=== PATIENT | female | born 1990 | race Caucasian/White ===

== ENCOUNTER 2022-08-04 18:12 | Emergency (ER) | payer OTHER, SELFPAY ==
--- NOTE | ~2022-08-04 | XR_ITS ---
EXAMINATION: XR chest 2V Exam Date/Time: 08/04/2022 18:32 COLLEGE OR UNIVERSITY BUSINESS MANAGER HISTORY: (+)COVID 07/21/22. COUGH/CONGESTION SINCE. Comparison: None available. RESULT: Lines, tubes, and devices: None. Lungs and pleura: Clear. Cardiomediastinal silhouette: Normal. Other: No acute osseous or upper abdominal finding. IMPRESSION: No acute cardiopulmonary process. Reviewed, dictated and finalized at location K. EGE OR UNIVERSITY BUSINESS MANAGER
[2022-08-04 18:18] VITALS: BP 192/115; PULSE 110; RESP 20; TEMP 37; O2SAT 100
--- NOTE | 2022-08-04 19:27 | ED.GENADULT ---
HPI - General Adult General Chief complaint: Upper Respiratory Infection Stated complaint: cold congestion Source: patient Mode of arrival: ambulatory Limitations: no limitations History of Present Illness HPI narrative: Patient presents for evaluation of ?difficulty breathing . She developed some chest congestion, shortness of breath and cough on 07/19/2022. On 07/23/2022 she took a COVID test which was positive. She states this is her 4th time having COVID. She states that her symptoms were initially mild but today she noted significantly worsening symptoms. She has experience wheezing, palpitations, racing heart rate. Denies any fever, chills, nausea, vomiting but does feel diaphoretic. She does not smoke. She is not on exogenous estrogen. No personal or family history of DVT or PE. No leg swelling. She states she has home O2 and checked her oxygen level which was in the high 80's-91%. No additional complaints or concerns. Related Data Home Medications Medication Instructions Recorded Confirmed metformin 500 mg tablet 500 mg PO DAILY 08/04/22 08/04/22 methylphenidate HCl 36 mg 72 mg PO DAILY 08/04/22 08/04/22 tablet,extended release 24 hr spironolactone 50 mg tablet 50 mg PO DAILY 08/04/22 08/04/22 Allergies Allergy/AdvReac Type Severity Reaction Status Date / Time morphine Allergy Hives Verified 08/04/22 18:30 Review of Systems Review of Systems: CONSTITUTIONAL: Reports diaphoresis. Denies fever, chills, or sweats. EYES: Denies visual changes, redness, or discharge. ENT: Denies rhinorrhea, congestion, sore throat, or otalgia. CARDIOVASCULAR: Reports palpitations and racing heart rate. Denies chest pain or edema. RESPIRATORY: Reports cough and shortness of breath. GASTROINTESTINAL: Denies abdominal pain, nausea, vomiting, or diarrhea. GENITOURINARY: Denies dysuria or hematuria. SKIN: Denies rash or itching. MUSCULOSKELETAL: Denies back pain, joint pain, or myalgia. NEUROLOGIC: Denies headache, numbness, dizziness, or weakness. PSYCHIATRIC: Denies anxiety or depression. [facility] Past Medical History Medical History (Updated 08/04/22 @ 19:46 by Jeremiah Toth, HISTOLOGY TECH, [place]) PCOS (polycystic ovarian syndrome) Surgical History Surgical History (Updated 01/02/23 @ 19:30 by Jeremiah Toth, [facility], ) History of oophorectomy Family History Family History Mother Family history non-contributory Social History Social History Smoking status: Never smoker Substance use: never Living arrangements: with family Additional occupation/education comments: RN Gender identity (if verbalized by the patient): Female Sexual Orientation (if Verbalized by the Patient): Straight or Heterosexual Spiritual care concerns: No Exam Narrative: GENERAL: Well-appearing, well-nourished, and in no acute distress. HEAD: Normocephalic, atraumatic. EYES: PERRLA and EOMI. ENT: Nares clear, no rhinorrhea or epistaxis. Mucous membranes moist. Oropharynx without tonsillar hypertrophy exudate or other lesions. Bilateral TMs pearly reeder nonbulging NECK: Supple. No adenopathy or masses. No carotid bruits or JVD CHEST: Diffuse inspiratory and expiratory wheezing and rales noted bilaterally HEART: Rate 120. Normal rhythm.. No murmur heard. Normal peripheral pulses. ABDOMEN: Soft, nontender, nondistended, normal active bowel sounds. EXTREMITIES: Normal range of motion. No edema. SKIN: Warm, dry, no rash. NEURO: No focal deficits. Alert and oriented x3. PSYCH: Normal mood and affect. Course Course Emergency Course: This is a 31-year-old female who presented for evaluation of respiratory symptoms with a recent diagnosis of COVID. Her chest x-ray was negative. However she was tachycardic and hypertensive. Saturations here were normal but she states home O2 sats were in the high 80s to 91%. I c
--- NOTE | 2022-08-04 19:38 | ECG_ITS ---
Measurements Intervals [place] Rate: 101 P: 48 HI: 178 QRS: -20 QRSD: 92 T: 19 QT: 341 QTc: 443 Interpretive Statements SINUS TACHYCARDIA DELAYED PRECORDIAL R/S TRANSITION INFERIOR INFARCT, AGE INDETERMINATE BASELINE ARTIFACT- I, II, III, AVR, AVL, AVF, V5 ABNORMAL ECG NO PREVIOUS ECG AVAILABLE FOR COMPARISON Electronically Signed On 08-05-2022 14:24:51 UNDERWRITING INTERN by Donnell Posadas D.O.
== END 2022-08-04 19:48 | disposition short-term general hospital (02) ==
PROVIDERS: Emergency Provider Nurse Practitioner
DX: R00.0 Tachycardia, unspecified (principal); U07.1 COVID-19; R06.02 Shortness of breath; E28.2 Polycystic ovarian syndrome
CPT/HCPCS: 71046; 93005; 99213; G0463

== ENCOUNTER 2022-08-04 20:26 | Observation (INO) | payer OTHER, SELFPAY ==
--- NOTE | ~2022-08-04 | XR_ITS ---
EXAMINATION: XR chest 1V portable Exam Date/Time: 08/04/2022 20:43 DIRECTOR OF HOUSING HISTORY: cough, SOB, HAD COVID ON Comparison: 08/04/2022 at 6:38 PM. RESULT: Lines, tubes, and devices: None. Lungs and pleura: Low lung volumes with crowding. No focal consolidation, effusion, or pneumothorax. Cardiomediastinal silhouette: Stable. Other: No acute osseous or upper abdominal finding. IMPRESSION: No acute cardiopulmonary process. Reviewed, dictated and finalized at location K. CTOR OF HOUSING
--- NOTE | ~2022-08-04 | CT_ITS ---
Clinical Indication: Dyspnea, abdominal pain CT Scan of the Chest, Abdomen, and Pelvis with Contrast: Technique: Contiguous sections were acquired throughout the chest, abdomen, and pelvis after intraven ous administration of 100 cc of Omnipaque 350. Coronal maximum intensity projection 3-D reconstructi ons were created by the technologist. Dose reduction technique was used on this scan by utilizing au tomated exposure control and iterative reconstruction technique. The dose-length product (DLP) was 24 53.83 mGy-cm. Findings: There is no evidence of any significant mediastinal, hilar or axillary lymphadenopathy. No aortic ane urysm or dissection. No definite large pulmonary embolus, but timing of the contrast bolus is subopti mal to evaluate for pulmonary emboli. There is no evidence of pleural or pericardial effusion. The lungs are clear. No pulmonary nodules or infiltrates are noted. The liver, spleen, pancreas, adrenals and kidneys are within normal limits. Gallbladder not visualize d. No evidence of aortic aneurysm. No lymphadenopathy. There is a large, low, ventral hernia containing multiple small bowel loops, as well as a small anter ior portion of the urinary bladder, and mesenteric fat. No bowel obstruction or bowel wall thickening . Urinary bladder is otherwise unremarkable. Probable small septated or multiple small right ovarian cy sts present. No other adnexal mass seen. No ascites. Impression: Very limited evaluation for pulmonary embolus due to timing of contrast bolus. No definite large cent ral pulmonary embolus. Consider VQ scan as indicated for further evaluation. Large, low, ventral hernia containing multiple small bowel loops, small portion urinary bladder, and mesenteric fat. No bowel obstruction or bowel wall thickening. Reviewed, dictated and finalized at [facility]. D [facility]OWER Impression: Very limited evaluation for pulmonary embolus due to timing of contrast bolus. No definite large central pulmonary embolus. Consider VQ scan as indicated for further evaluation. Large, low, ventral hernia containing multiple small bowel loops, small portion urinary bladder, and mesenteric fat. No bowel obstruction or bowel wall thicke
[2022-08-04 20:27] VITALS: BP 144/109; PULSE 110; RESP 24; TEMP 36.5; O2SAT 99
--- NOTE | 2022-08-04 20:35 | ECG_ITS ---
Rate 95 HI 0 QRSd 93 QT 329 QTc 415 --[place]-- P QRS -27 T 14 SINUS OR ECTOPIC ATRIAL RHYTHM INCOMPLETE RIGHT BUNDLE BRANCH BLOCK POOR R WAVE PROGRESSION, ANTERIOR LEADS BORDERLINE T WAVE ABNORMALITY- ANT/INF LEADS BASELINE ARTIFACT- I, II, III, AVR, AVL, AVF, V1-V6 BORDERLINE ECG Electronically Signed On 08-05-2022 16:17:37 PROCESSOR INSPECTOR by Donnell Posadas D.O. COMPARED TO ECG 08/04/2022 19:37:57 ECTOPIC ATRIAL RHYTHM NOW PRESENT INCOMPLETE RIGHT BUNDLE-BRANCH BLOCK NOW PRESENT MTDD
--- NOTE | 2022-08-04 20:45 | ED.SOB ---
HPI - SOB/Dyspnea General Chief Complaint: Shortness of Breath/Dyspnea Stated Complaint: recent COVID, dyspnea sent from urgent care Time Seen by Provider: 08/04/22 20:36 Source: RN notes reviewed History of Present Illness HPI Narrative: Patient presents emergency department from urgent care for shortness of breath. Patient states she tested positive for COVID on July 21. States that she initially improved but over the past 24 hours she has become more short of breath she states she has been coughing frequently with wheezing throughout the lung rodgers. She states she feels that she cannot take a deep breath and states that she is continuously coughing. She denies any fevers or chills she denies any chest pain denies abdominal pain nausea or vomiting. She gone to urgent care and was then transferred to the ER for further evaluation Related Data Home Medications Medication Instructions Recorded Confirmed metformin 500 mg tablet 500 mg PO DAILY 08/04/22 08/04/22 methylphenidate HCl 36 mg 72 mg PO DAILY 08/04/22 08/04/22 tablet,extended release 24 hr spironolactone 50 mg tablet 50 mg PO DAILY 08/04/22 08/04/22 Allergies Allergy/AdvReac Type Severity Reaction Status Date / Time morphine Allergy Hives Verified 08/04/22 20:31 Review of Systems Review of Systems: Gen.: Denies fevers or chills ENT: Denies congestion Respiratory: See HPI CV: Denies chest pain or palpitations GI: Denies abdominal pain nausea, emesis or diarrhea Musculoskeletal: Denies back pain or muscle pain Neuro: Denies numbness, tingling, weakness or focal weakness Skin: Denies rash Except as documented, all other systems reviewed and negative [facility] Past Medical History Medical History Hidradenitis suppurativa PCOS (polycystic ovarian syndrome) Psoriasis Surgical History Surgical History H/O ventral hernia repair History of oophorectomy Family History Family History Mother Diabetes mellitus Father Hypertension Other Family history non-contributory Social History Social History Smoking status: Never smoker Substance use: never Additional occupation/education comments: RN Gender identity (if verbalized by the patient): Female Sexual Orientation (if Verbalized by the Patient): Straight or Heterosexual Spiritual care concerns: No Exam Narrative: APPEARANCE: Mild respiratory distress, nontoxic, resting in bed EYES: EOMI HEENT: Normocephalic, atraumatic, OMM RESPIRATORY: Mild respiratory distress patient in short phrases and some wheezing throughout the bilateral lung rodgers with decreased breath sounds in the bases CARDIOVASCULAR: Regular rate and rhythm without murmurs rubs or gallops. ABDOMINAL: Soft, nontender, nondistended, no rebound or guarding MUSCULOSKELETAl: Moves all extremities. No clubbing, cyanosis or edema. NEURO: Awake and alert. Following commands, speech normal, no focal deficits SKIN:: Warm, dry. No rashes lesions or abrasions PSYCHIATRIC: Normal affect/mood, Course Course Emergency Course: Patient states that she has been coughing so severely she believes that she has ruptured her mesh over her abdominal wall hernia in her lower abdomen. Evaluated the patient whenever she coughs she has expansion of her abdominal wall hernia it is soft and does not fully reduce but is tender to palpation we will image at this time patient states that she cannot take morphine but can take Dilaudid for her pain and has taken before in the past with good relief Following breathing treatments patient continues to have wheezing in the upper lung rodgers it is improved but still present will admit at this time Discussed with Dr. Cooper presentation work-up he does agree with admission a
[2022-08-04] MEDS: ALBUTEROL SULFATE NEB 2.5 MG/3 ML INH 5 MG INHALATION ×2 (20:53→21:32)
[2022-08-04] MEDS: IPRATROPIUM BR 0.02% INH SOLN 0.5 MG/2.5 ML VIAL INHALATION ×2 (20:53→21:32)
[2022-08-04 20:54] VITALS: PULSE 104; RESP 22
[2022-08-04 20:56] VITALS: O2SAT 97
[2022-08-04 20:59] VITALS: PULSE 96; RESP 20
[2022-08-04 21:03] LABS: Basophils Absolute Auto 0.1 K/mm3 (0.0-0.1); Basophils Percent Auto 0.4 % (0.2-1.2); Eosinophils Absolute Auto 0.5 K/mm3 (0-0.3); Eosinophils Percent Auto 3.2 % (0-4.4); Hemoglobin 14.4 g/dL (12.0-15.0); Immature Granulocyte Absolute 0.07 K/mm3 (0.00-0.031); Immature Granulocyte Percent A 0.5 % (0-0.5); Lymphocytes Absolute Auto 4.01 K/mm3 (0.9-3.2); Lymphocytes Percent Auto 25.8 % (18.3-44.2); Mean Corpuscular HGB Conc 34.3 g/dl (32-36); Mean Corpuscular Hemoglobin 30.4 pg (26-34); Mean Corpuscular Volume 88.6 fl (80-100); Mean Platelet Volume 8.2 fl (7.4-10.4); Monocytes Absolute Auto 0.9 K/mm3 (0.1-0.6); Monocytes Percent Auto 5.6 % (2.6-8.5); Neutrophils Percent Auto 64.5 % (45.5-73.1); Platelet Count Result 338 k/mm3 (150-375); Red Blood Count 4.74 M/mm3 (4.2-5.4); Red Cell Distribution Width 12.9 % (11.5-14.5); White Blood Count 15.5 K/mm3 (4.5-10.0)
[2022-08-04] MEDS: methylPREDNISolone SOD SUCC 125 MG VIAL IV PUSH (21:05)
[2022-08-04 21:12] LABS: Alanine Aminotransferase 36 U/L (6-35); Albumin Level 4.9 g/dL (3.5-5.1); Alkaline Phosphatase 59 U/L (38-126); Anion Gap 10 mmol/L (8-16); Aspartate Amino Transferase 34 U/L (14-36); Bilirubin,Total 0.4 mg/dL (0.2-1.3); Blood Urea Nitrogen 15 mg/dL (7-17); Calcium 9.7 mg/dL (8.4-10.2); Carbon Dioxide 26 mmol/L (22-30); Chloride 100 mmol/L (98-107); Estimated CRCL calculation 172 ml/min; Estimated Glomerular Filt Rate > 60; Glucose 105 mg/dL (65-110); Potassium 3.7 mmol/L (3.4-5.0); Sodium 136 mmol/L (137-145)
[2022-08-04 21:23] LABS: Prothrombin Time 12.6 Seconds (11.1-14.7)
[2022-08-04 21:24] LABS: Partial Thromboplastin Time 28.2 SECONDS (22.3-36.8)
[2022-08-04 21:28] LABS: D Dimer 0.49 ug/mL (<0.48)
[2022-08-04 21:32] VITALS: PULSE 98; RESP 20
--- NOTE | 2022-08-04 21:36 | PCRCNOTE ---
pt is stating that her surgical mesh from PCOS is protruding due to the amount of coughing she has been doing. pt is in pain. RN and MD notified.
[2022-08-04 21:39] LABS: Influenza A QL RT-PCR Negative (Negative); Influenza B QL RT-PCR Negative (Negative); SARS-CoV-2 RNA PCR Negative
[2022-08-04 21:42] VITALS: PULSE 91; RESP 18
[2022-08-04] MEDS: HYDROmorphone HCL INJ (*CRX) 1 MG/ML SYR 0.5 MG IV PUSH (23:12)
[2022-08-05] MEDS: HYDROmorphone HCL INJ (*CRX) 1 MG/ML SYR 0.5 MG IV PUSH ×2 (00:18→01:45)
[2022-08-05 00:58] VITALS: PULSE 88; RESP 18
[2022-08-05] MEDS: IPRATROPIUM BR 0.02% INH SOLN 0.5 MG/2.5 ML VIAL INHALATION (00:58)
[2022-08-05] MEDS: ALBUTEROL SULFATE NEB 2.5 MG/3 ML INH 5 MG INHALATION (00:58)
--- NOTE | 2022-08-05 02:54 | PM.IMHP ---
H&P: HPI History of Present Illness Date/Time: 08/05/22 02:54 Chief Complaint: Cough and diaphoresis Narrative: Patient is a 31-year-old female with past medical history of PCOS, morbid obesity, psoriasis, suppurative hidradenitis presents the ED with complaints of worsening cough and diaphoresis. Patient recently had COVID-19 with symptom onset on 07/19/2022, diagnosed on 07/23, subsequently resolved a week later with triple negative tests. She states this is her 4th episode of COVID-19. She has had a mild persistent cough since this COVID 19 diagnosis. Over last 2 days she has had worsening cough and diaphoresis without fever. 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 She states her abdominal hernia-has broke with her significant coughing. She has had 1 episode before where she had to have a hernia mesh repair. In the ED: Lab showed WBC 15.5 K, other labs appear stable couple COVID negative, flu negative, chest x-ray negative. CTA no PE, abdominal CT shows large anterior abdominal wall hernia with trace inflammatory stranding present. 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 Review of Systems Review of Systems: Constitutional: No Fever, No Chills, No Night Sweats, No Fatigue, No Malaise ENT/Mouth: No Hearing Changes, No Ear Pain, No Nasal Congestion, No Sinus Pain, No Hoarseness, No sore throat, No Rhinorrhea, No Swallowing Difficulty Eyes: No Eye Pain, No Redness, No Vision Changes Cardiovascular: No Chest Pain, No Palpitations, No Dyspnea on Exertion, No Orthopnea, No Claudication, No Edema Respiratory: Cough without sputum, dyspnea Gastrointestinal: Abdominal pain around the abdominal hernia mesh with cough Genitourinary: No Dysuria, No Urinary Frequency, No Hematuria, No Urinary Incontinence, No Urgency Musculoskeletal: No Arthralgias, No Myalgias, No Joint Swelling, No Joint Stiffness, No Back Pain Skin: No Skin Lesions, No Pruritis, No Hair Changes Neuro: No Weakness, No Numbness, No Paresthesias, No Loss of Consciousness, No Syncope, No Dizziness, No Headache Psych: No Anxiety/Panic, No Depression, No Insomnia Heme: No Bruising, No Bleeding Lymph: No Adenopathy Endocrine: No Polyuria, No Polydipsia, No Temperature Intolerance PMFSH Past Medical History Medical History Hidradenitis suppurativa PCOS (polycystic ovarian syndrome) Psoriasis Surgical History Surgical History H/O ventral hernia repair History of oophorectomy Family History Family History Mother Diabetes mellitus Father Hypertension Other Family history non-contributory Social History Social History Smoking status: Never smoker Substance use: never Additional occupation/education comments: RN Gender identity (if verbalized by the patient): Female Sexual Orientation (if Verbalized by the Patient): Straight or Heterosexual Spiritual care concerns: No Meds Home Medications and Allergies Home Medications Medication Instructions Recorded Confirmed Type metformin 500 mg tablet 500 mg PO DAILY 08/04/22 08/04/22 History methylphenidate HCl 36 mg 72 mg PO DAILY 08/04/22 08/04/22 History tablet,extended release 24 hr spironolactone 50 mg tablet 50 mg PO DAILY 08/04/22 08/04/22 History Allergies Allergy/AdvReac Type Severity Reaction Status Date / Time morphine Allergy Hives Verified 08/04/22 20:31 Vital Signs Vital Signs - 24 hr 08/04/22 20:27 08/04/22 20:54 08/04/22 20:56 Temperature 36.5 C Pulse Rate 110 H 104 H Respiratory Rate 24 H 22 H Blood Pressure 144/109 H Pulse Oximetry 99 97 Oxygen Delivery Room Air Room Air 08/04/22 20:59 08/04/22 21:32 08/04/22 21:42 Temperature Pu
[2022-08-05] MEDS: HYDROmorphone HCL INJ (*CRX) 1 MG/ML SYR IV PUSH ×6 (04:37→20:45)
[2022-08-05 04:43] VITALS: BMI 43.5
--- NOTE | 2022-08-05 06:06 | ADMGEN ---
This patient, Gricelda Johnson, was admitted to [facility] Surg Room 331-01. Patient/family oriented to hospital policies and general routines including ID bracelet, bed and alarms, visiting hours, pain management, procedures, bathroom and other care routines, personal items, smoking policy, room service/diet, and visiting hours. Information on how to activate the Rapid Response Team has been discussed. Patient/Family are encouraged to report perceived risks to care and to ask questions if they do not understand what they are told or what they should do.
[2022-08-05] MEDS: HYDROcodone/acetaminophen (*CRX) 5-325 MG TABLET 1 TAB PO ×2 (06:09→09:54)
[2022-08-05] MEDS: methylPREDNISolone SOD SUCC 40 MG VIAL IV PUSH ×3 (06:11→20:45)
[2022-08-05 08:00] VITALS: PULSE 96
[2022-08-05] MEDS: guaiFENesin 12 HR 600 MG TABCR 1200 MG PO ×2 (08:13→20:45)
[2022-08-05] MEDS: BENZONATATE 100 MG CAPSULE 200 MG PO ×3 (08:13→17:06)
[2022-08-05] MEDS: SPIRONOLACTONE 50 MG TABLET 100 MG PO (08:13)
--- NOTE | 2022-08-05 10:04 | PM.CNGS ---
Assessment and Plan Assessment and plan (1) Recurrent incisional hernia: Code(s): K43.2 - Incisional hernia without obstruction or gangrene Status: Acute Assessment and Plan: She presents with a large recurrent incisional hernia of the lower abdomen with multiple loops of nonobstructed small bowel, mesenteric fat, and small portion of the urinary bladder noted in the hernia on CT. Discussed CT findings with the patient. There is no evidence of obstruction by history or CT. Her hernia is soft and reducible on exam. This is more symptomatic due to her respiratory illness, but there is no signs of incarceration or strangulation. No indication for urgent surgical intervention. She is currently tolerating a regular diet. Discussed the case with Dr. Arrington. This would be a complicated surgical repair that would likely require a component separation. Since this is not urgent, we would recommend that she be referred to a specialist at a tertiary care facility who could evaluate her as an outpatient for surgical repair once her respiratory illness has resolved. (2) Acute bronchitis with bronchospasm: Code(s): J20.9 - Acute bronchitis, unspecified Status: Acute Assessment and Plan: Management per Hospitalist. (3) SIRS (systemic inflammatory response syndrome): Code(s): R65.10 - Systemic inflammatory response syndrome (SIRS) of non-infectious origin without acute organ dysfunction Status: Acute Assessment and Plan: Criteria met with tachycardia and leukocytosis on admission. Likely pulmonary related. Blood cx pending. Continue antibiotics and management per Hospitalist. (4) COVID: Code(s): U07.1 - COVID-19 Status: Acute Assessment and Plan: Tested positive on 07/21/22, not currently on isolation precautions. Now with worsening cough, wheezing, and SOB. Continue management per Hospitalist. (5) Obesity, morbid, BMI 40.0-49.9: Code(s): E66.01 - Morbid (severe) obesity due to excess calories Status: Acute Assessment and Plan: Encouraged lifestyle and diet modifications to promote weight loss. (6) PCOS (polycystic ovarian syndrome): Code(s): E28.2 - Polycystic ovarian syndrome Status: Acute Plan I have discussed the patient's case and plan of care with Dr. Arrington. Thank you for allowing us to see the patient in consultation and we will continue to follow along with you. History of Present Illness Consult details Consult date: 08/05/22 Reason for consult: other (Abdominal wall hernia) Requesting physician: Pancho Duran DO Narrative: This is a 31-year-old morbidly obese woman with a history of PCOS and endometriosis, who recently tested positive for COVID-19 on 07/21/2022. She initially had mild symptoms of cough, congestion, and loss of smell. Her symptoms improved, until the last 2 days she has had worsening cough and diaphoresis. 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 Yesterday morning, with violent coughing, she heard and felt a pop sensation in her lower abdomen. Since then, she has noticed a large bulge in the same area she has had two previous hernia repairs. She has also had a constant pain in the area of the bulge since the pop she heard. She reports noticing wheezing and felt it was more difficult to breathe, therefore she went to the [place] urgent care yesterday. They directed her to the ED for further work-up of possible PE. In the ER, she had a CTA chest/abdomen/pelvis that showed no definite large pulmonary embolus but limited due to timing of contrast. Also seen was a large, low ventral hernia containing multiple loops of small bowel, small portion of the bladder, and mesenteric fat without any evidence of a bowel obstruction or bowel wall thickening. Labs did show a WBC count 15,000. COVID and influenza testing was negative. Blood cultures drawn. She was admitted to
[2022-08-05 12:00] VITALS: PULSE 96
--- NOTE | 2022-08-05 12:00 | PM.IMPN ---
Progress Note: A&P Assessment and Plan (1) Sepsis: Code(s): A41.9 - Sepsis, unspecified organism Status: Acute Assessment and Plan: Patient meets SIRS criteria with tachycardia, tachypnea, leukocytosis, and source of infection with possible bronchitis IV azithromycin ordered Could be residual from recent COVID infection WBC 15.5 Blood cultures pending Sputum culture if able Trend labs Trend symptoms (2) Acute bronchitis with bronchospasm: Code(s): J20.9 - Acute bronchitis, unspecified Status: Acute Assessment and Plan: Wheezing noted on exam No history of smoking WBC is elevated at 15.5 Solu-Medrol 40mg IV Q8H, wean as indicated Start azithromycin with elevated WBC Continue neb treatments Anti-tussives ordered (3) COVID: Code(s): U07.1 - COVID-19 Status: Acute Assessment and Plan: diagnosed COVID-19 on 07/23/2022, subsequently has negative COVID tests COVID test on admission was negative. no need for isolation considering length of disease course Reported persistent cough, Tessalon Perles and mucinex DM blood cultures with diaphoresis despite no fevers, pending will continue nebs and steroids for now (she has some wheezing on right lung, no history of asthma or smoking/vaping) repeat labs does show any elevated WBC CTA does not indicate any pneumonia or PE (4) Abdominal hernia: Code(s): K46.9 - Unspecified abdominal hernia without obstruction or gangrene Status: Deleted Assessment and Plan: Noted failure, secondary to acute cough General surgery consulted Outpatient vs inpatient Imaging does not indicate any obstruction or incarceration, however, does appear to be very large Will await recommendations (5) PCOS (polycystic ovarian syndrome): Code(s): E28.2 - Polycystic ovarian syndrome Status: Acute Assessment and Plan: S/P oophorectomy surgery Stable at this time Continue home metformin and spironolactone Time Spent With Patient Time with patient: Greater than 35 minutes Subjective Date/time seen: 08/05/22 1200 Interval history: 08/05/22 1200 patient was lying in bed sweating profusely. Her face is bright red she appears to be not feeling good. She stated that she feels like her breathing is better however she did get 4 breathing treatments and steroids in the ED. She denies any chest pain, nausea, or vomiting. 08/05/22? 02:54 Patient is a 31-year-old female with past medical history of PCOS, morbid obesity, psoriasis, suppurative hidradenitis presents the ED with complaints of worsening cough and diaphoresis.? Patient recently had COVID-19 with symptom onset on 07/19/2022, diagnosed on 07/23, subsequently resolved a week later with triple negative tests.? She states this is her 4th episode of COVID-19.? She has had a mild persistent cough since this COVID 19 diagnosis.? Over last 2 days she has had worsening cough and diaphoresis without fever.? 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 She states her abdominal hernia-has broke with her significant coughing.? She has had 1 episode before where she had to have a hernia mesh repair. In the ED: Lab showed WBC 15.5 K, other labs appear stable couple COVID negative, flu negative, chest x-ray negative.? CTA no PE, abdominal CT shows large anterior abdominal wall hernia with trace inflammatory stranding present.? 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 Review of Systems Review of Systems: All systems reviewed & are unremarkable except as noted in HPI and below Exam Narrative: General: well-nourished, ill-appearing 31-year-old female, sitting up in bed, comfortable, NARD Neuro: awake, alert and oriented x4, speech clear, no focal neuro deficits noted HEENMT: normocephalic, atraumatic, EOMI, sclerae a
--- NOTE | 2022-08-05 12:00 | P.PNIM_ITS ---
Progress Note: A&P Assessment and Plan (1) Sepsis: Code(s): A41.9 - Sepsis, unspecified organism Status: Acute Assessment and Plan: * Patient meets SIRS criteria with tachycardia, tachypnea, leukocytosis, and so urce of infection with possible bronchitis * IV azithromycin ordered * Could be residual from recent COVID infection * WBC 15.5 * Blood cultures pending * Sputum culture if able * Trend labs * Trend symptoms (2) Acute bronchitis with bronchospasm: Code(s): J20.9 - Acute bronchitis, unspecified Status: Acute Assessment and Plan: * Wheezing noted on exam * No history of smoking * WBC is elevated at 15.5 * Solu-Medrol 40mg IV Q8H, wean as indicated * Start azithromycin with elevated WBC * Continue neb treatments * Anti-tussives ordered (3) COVID: Code(s): U07.1 - COVID-19 Status: Acute Assessment and Plan: * diagnosed COVID-19 on 07/23/2022, subsequently has negative COVID tests * COVID test on admission was negative. no need for isolation considering length of disease course * Reported persistent cough, Tessalon Perles and mucinex DM * blood cultures with diaphoresis despite no fevers, pending * will continue nebs and steroids for now (she has some wheezing on right lung, no history of asthma or smoking/vaping) * repeat labs does show any elevated WBC * CTA does not indicate any pneumonia or PE (4) Abdominal hernia: Code(s): K46.9 - Unspecified abdominal hernia without obstruction or gangrene Status: Deleted Assessment and Plan: * Noted failure, secondary to acute cough * General surgery consulted * Outpatient vs inpatient * Imaging does not indicate any obstruction or incarceration, however, does appear to be very large * Will await recommendations (5) PCOS (polycystic ovarian syndrome): Code(s): E28.2 - Polycystic ovarian syndrome Status: Acute Assessment and Plan: * S/P oophorectomy surgery * Stable at this time * Continue home metformin and spironolactone Time Spent With Patient Time with patient: Greater than 35 minutes Subjective Date/time seen: 08/05/22 1200 Interval history: 08/05/221199 patient was lying in bed sweating profusely. Her face is bright red she appears to be not feeling good. She stated that she feels like her breathing is better however she did get 4 breathing treatments and steroids in the ED. She denies any chest pain, nausea, or vomiting. 08/05/22? 02:54 Patient is a 31-year-old female with past medical history of PCOS, morbid obesity, psoriasis, suppurative hidradenitis presents the ED with complaints of worsening cough and diaphoresis.? Patient recently had COVID-19 with symptom onset on 07/19/2022, diagnosed on 07/23, subsequently resolved a week later with triple negative tests.? She states this is her 4th episode of COVID-19.? She has had a mild persistent cough since this COVID 19 diagnosis.? Over last 2 days she has had worsening cough and diaphoresis without fever.? 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 She states her abdominal hernia-has broke with her significant coughing.? She has had 1 episode before where she had to have a hernia mesh repair. In the ED: Lab showed WBC 15.5 K, other labs appear stable couple COVID negative, flu negative, chest x-ray negative.? CTA no PE, abdominal CT shows large anterior abdominal wa
[2022-08-05 15:16] VITALS: BP 138/82; PULSE 99; RESP 16; TEMP 36.7; O2SAT 97
[2022-08-05 21:10] VITALS: BP 146/82; PULSE 98; RESP 16; TEMP 36.4; O2SAT 96
[2022-08-05 23:48] VITALS: O2SAT 97
[2022-08-06] MEDS: HYDROmorphone HCL INJ (*CRX) 1 MG/ML SYR IV PUSH ×7 (00:09→22:27)
[2022-08-06] MEDS: HYDROcodone/acetaminophen (*CRX) 5-325 MG TABLET 1 TAB PO ×4 (01:47→21:03)
[2022-08-06] MEDS: methylPREDNISolone SOD SUCC 40 MG VIAL IV PUSH (05:55)
[2022-08-06 06:00] VITALS: BP 155/78; PULSE 94; RESP 20; TEMP 36.8; O2SAT 94
[2022-08-06 06:22] LABS: Basophils Percent Auto 0.2 % (0.2-1.2); Hematocrit 38.7 % (37.0-47.0); Hemoglobin 13.1 g/dL (12.0-15.0); Immature Granulocyte Absolute 0.14 K/mm3 (0.00-0.031); Immature Granulocyte Percent A 0.7 % (0-0.5); Lymphocytes Absolute Auto 1.51 K/mm3 (0.9-3.2); Lymphocytes Percent Auto 7.8 % (18.3-44.2); Mean Corpuscular HGB Conc 33.9 g/dl (32-36); Mean Corpuscular Hemoglobin 30.5 pg (26-34); Mean Corpuscular Volume 90.2 fl (80-100); Mean Platelet Volume 8.4 fl (7.4-10.4); Monocytes Absolute Auto 1.2 K/mm3 (0.1-0.6); Monocytes Percent Auto 6.1 % (2.6-8.5); Neutrophils Absolute Auto 16.5 K/mm3 (1.3-6.7); Neutrophils Percent Auto 85.2 % (45.5-73.1); Platelet Count Result 335 k/mm3 (150-375); Red Blood Count 4.29 M/mm3 (4.2-5.4); Red Cell Distribution Width 13.2 % (11.5-14.5); White Blood Count 19.3 K/mm3 (4.5-10.0)
[2022-08-06 06:38] LABS: Alanine Aminotransferase 28 U/L (6-35); Albumin Level 4.3 g/dL (3.5-5.1); Alkaline Phosphatase 49 U/L (38-126); Anion Gap 9 mmol/L (8-16); Aspartate Amino Transferase 19 U/L (14-36); Bilirubin,Total 0.3 mg/dL (0.2-1.3); Blood Urea Nitrogen 12 mg/dL (7-17); Carbon Dioxide 23 mmol/L (22-30); Chloride 104 mmol/L (98-107); Estimated CRCL calculation 202 ml/min; Estimated Glomerular Filt Rate > 60; Glucose 143 mg/dL (65-110); Potassium 4.2 mmol/L (3.4-5.0); Sodium 136 mmol/L (137-145)
--- NOTE | 2022-08-06 06:57 | PC.NURSE ---
Per patient: Regine can be on hold while inpatient as she only takes while at school.
[2022-08-06 08:00] VITALS: O2SAT 94
[2022-08-06] MEDS: BENZONATATE 100 MG CAPSULE 200 MG PO ×3 (08:37→17:19)
[2022-08-06] MEDS: SPIRONOLACTONE 50 MG TABLET 100 MG PO (08:37)
[2022-08-06] MEDS: guaiFENesin 12 HR 600 MG TABCR 1200 MG PO ×2 (08:37→21:00)
--- NOTE | 2022-08-06 08:44 | P.PNIM_ITS ---
Progress Note: A&P Assessment and Plan (1) Sepsis: Code(s): A41.9 - Sepsis, unspecified organism Status: Acute Assessment and Plan: Patient meets SIRS criteria with tachycardia, tachypnea, leukocytosis, and sravanthi rce of infection with possible bronchitis * IV azithromycin ordered on 08/05/22 * Could be residual from recent COVID infection * WBC 15.5 on admission * Blood cultures no growth to date * Sputum culture uncollected * 08/06/22 WBC count 19.3. Patient does not complain of any symptoms. UA ordered to rule out infection. * 08/06/22 azithromycin discontinued due to no signs of infection on chest x-ray or chest CT. Patient having no infectious symptoms. * Trend labs * Trend symptoms (2) Acute bronchitis with bronchospasm: Code(s): J20.9 - Acute bronchitis, unspecified Status: Acute Assessment and Plan: Patient was diagnosed with COVID a couple weeks ago and has residual cough post COVID * Wheezing noted on exam * No history of smoking * WBC is elevated at 15.5 on admission * Solu-Medrol 40mg IV Q8H, wean as indicated * Solu-Medrol discontinued on 08/06/2022 * Azithromycin started on 08/05/2022 and discontinued on 08/06/2022 due to no signs infection. * DuoNeb treatments discontinued due to patient's tachycardia that she experiences when undergoing nebulizing treatments * Anti-tussives ordered (3) COVID: Code(s): U07.1 - COVID-19 Status: Acute Assessment and Plan: Diagnosed COVID-19 on 07/23/2022, subsequently has negative COVID tests * COVID test on admission was negative. no need for isolation considering length of disease course * Reported persistent cough, Tessalon Perles and mucinex DM * blood cultures no growth to date * will continue nebs and steroids for now (she has some wheezing on right lung, no history of asthma or smoking/vaping) * 08/06/22 steroids and nebulizers discontinued due to clear lungs and clear chest x-ray. * repeat labs does show any elevated WBC at 19.3 * CTA does not indicate any pneumonia or PE (4) PCOS (polycystic ovarian syndrome): Code(s): E28.2 - Polycystic ovarian syndrome Status: Acute Assessment and Plan: * S/P oophorectomy surgery * Stable at this time * Continue home metformin and spironolactone Time Spent With Patient Time with patient: Greater than 35 minutes Subjective Date/time seen: 08/06/22 08:44 Interval history: 08/06/22 31-year-old female with history of PCOS, incisional hernia, psoriasis, suppura tive hidradenitis presented to the ER due to worsening cough and diaphoresis. Patient tested COVID positive on 07/23/2022. The cough patient was experiencing caused her abdominal hernia to ?break hernia mesh? due to her coughing. When interviewed patient today she said that she felt great and the pain was under control. Patient denies chest pain, shortness a breath, nausea, vomiting, diarrhea, lower extremity edema and fever. Patient still having cough that has improved with antitussives and abdominal pain has improved. Review of Systems 2 Review of Systems: All systems reviewed & are unremarkable except as noted in HPI and below Exam Narrative: GENERAL: Comfortable, no acute distress, obese HENMT: moist mucous membranes, facial erythema due to psoriasis and rosacea EYES: EOM intact b/l NECK: no lymphadenopathy RESPIRATORY: clear to auscultation CARDIO: RRR GI: soft, nontender, bowel
--- NOTE | 2022-08-06 08:44 | PM.IMPN ---
Progress Note: A&P Assessment and Plan (1) Sepsis: Code(s): A41.9 - Sepsis, unspecified organism Status: Acute Assessment and Plan: Patient meets SIRS criteria with tachycardia, tachypnea, leukocytosis, and source of infection with possible bronchitis IV azithromycin ordered on 08/05/22 Could be residual from recent COVID infection WBC 15.5 on admission Blood cultures no growth to date Sputum culture uncollected 08/06/22 WBC count 19.3. Patient does not complain of any symptoms. UA ordered to rule out infection. 08/06/22 azithromycin discontinued due to no signs of infection on chest x-ray or chest CT. Patient having no infectious symptoms. Trend labs Trend symptoms (2) Acute bronchitis with bronchospasm: Code(s): J20.9 - Acute bronchitis, unspecified Status: Acute Assessment and Plan: Patient was diagnosed with COVID a couple weeks ago and has residual cough post COVID Wheezing noted on exam No history of smoking WBC is elevated at 15.5 on admission Solu-Medrol 40mg IV Q8H, wean as indicated Solu-Medrol discontinued on 08/06/2022 Azithromycin started on 08/05/2022 and discontinued on 08/06/2022 due to no signs infection. DuoNeb treatments discontinued due to patient's tachycardia that she experiences when undergoing nebulizing treatments Anti-tussives ordered (3) COVID: Code(s): U07.1 - COVID-19 Status: Acute Assessment and Plan: Diagnosed COVID-19 on 07/23/2022, subsequently has negative COVID tests COVID test on admission was negative. no need for isolation considering length of disease course Reported persistent cough, Tessalon Perles and mucinex DM blood cultures no growth to date will continue nebs and steroids for now (she has some wheezing on right lung, no history of asthma or smoking/vaping) 08/06/22 steroids and nebulizers discontinued due to clear lungs and clear chest x-ray. repeat labs does show any elevated WBC at 19.3 CTA does not indicate any pneumonia or PE (4) PCOS (polycystic ovarian syndrome): Code(s): E28.2 - Polycystic ovarian syndrome Status: Acute Assessment and Plan: S/P oophorectomy surgery Stable at this time Continue home metformin and spironolactone Time Spent With Patient Time with patient: Greater than 35 minutes Subjective Date/time seen: 08/06/22 08:44 Interval history: 08/06/22 31-year-old female with history of PCOS, incisional hernia, psoriasis, suppurative hidradenitis presented to the ER due to worsening cough and diaphoresis. Patient tested COVID positive on 07/23/2022. The cough patient was experiencing caused her abdominal hernia to ?break hernia mesh? due to her coughing. When interviewed patient today she said that she felt great and the pain was under control. Patient denies chest pain, shortness a breath, nausea, vomiting, diarrhea, lower extremity edema and fever. Patient still having cough that has improved with antitussives and abdominal pain has improved. Review of Systems Review of Systems: All systems reviewed & are unremarkable except as noted in HPI and below Exam Narrative: GENERAL: Comfortable, no acute distress, obese HENMT: moist mucous membranes, facial erythema due to psoriasis and rosacea EYES: EOM intact b/l NECK: no lymphadenopathy RESPIRATORY: clear to auscultation CARDIO: RRR GI: soft, nontender, bowel sounds present, large incisional hernia in the suprapubic region that is reducible. SKIN: no rashes EXTREMITIES: no edema, redness or tenderness Objective Data Vital Signs Vital Signs: Vital Signs - 24 hr 08/05/22 12:00 08/05/22 15:16 08/05/22 21:10 Temperature 98.1 F 97.6 F Pulse Rate 96 99 98 Respiratory Rate 16 16 Blood Pressure 138/82 146/82 H Pulse Oximetry 97 96 Oxygen Delivery 08/05/22 23:48 08/06/22 06:00 Temperature 98.3 F Pulse Rate 94 Respiratory Rate 20 Blood Pressure
--- NOTE | 2022-08-06 10:34 | PM.PNGS ---
Progress Note: A&P Assessment and Plan (1) Recurrent incisional hernia: Code(s): K43.2 - Incisional hernia without obstruction or gangrene Status: Acute Assessment and Plan: Hernia remains soft and at least partially reducible. Abdominal pain is improving as her cough is improving. Tolerating a diet and her bowels are moving. Encouraged trying to transition to oral analgesics today. (2) Acute bronchitis with bronchospasm: Code(s): J20.9 - Acute bronchitis, unspecified Status: Acute (3) SIRS (systemic inflammatory response syndrome): Code(s): R65.10 - Systemic inflammatory response syndrome (SIRS) of non-infectious origin without acute organ dysfunction Status: Acute (4) COVID: Code(s): U07.1 - COVID-19 Status: Acute (5) Obesity, morbid, BMI 40.0-49.9: Code(s): E66.01 - Morbid (severe) obesity due to excess calories Status: Acute (6) PCOS (polycystic ovarian syndrome): Code(s): E28.2 - Polycystic ovarian syndrome Status: Acute Plan I have discussed the patient's case and plan of care with Dr. Arrington. Subjective Subjective Date/Time Seen: 08/06/22 10:34 Patient reports: no new complaints, pain is less, tolerating a regular diet, flatus, bowel movement (this am) and afebrile Interval history: Still taking [place] and IV Dilaudid for pain. She is feeling better and states her cough has nearly completely resolved this morning. As her cough has improved, her lower abdominal pain at the hernia has improved. She is going to try and transition to oral analgesics today only. Review of Systems Review of Systems: All systems reviewed & are unremarkable except as noted in HPI and below Exam Const: General: no acute distress and awake Nutritional Appearance: obese morbidly obese Orientation/consciousness: patient oriented x3 GI: Inspection: [place] present, obesity and visible herniation (soft, reducible, slightly tender, suprapubic incisional hernia) Auscultation: normal bowel sounds Objective Data Vital Signs Vital Signs: Vital Signs - 24 hr 08/05/22 12:00 08/05/22 15:16 08/05/22 21:10 Temperature 98.1 F 97.6 F Pulse Rate 96 99 98 Respiratory Rate 16 16 Blood Pressure 138/82 146/82 H Pulse Oximetry 97 96 Oxygen Delivery 08/05/22 23:48 08/06/22 06:00 Temperature 98.3 F Pulse Rate 94 Respiratory Rate 20 Blood Pressure 155/78 H Pulse Oximetry 97 94 Oxygen Delivery Room Air Intake/Output Intake/Output: Intake & Output 08/03/22 08/04/22 08/05/22 08/06/22 23:59 23:59 23:59 23:59 Intake Total 100 1470 100 Balance 100 1470 100 Meds/Results Medications: Active Medications Generic Name Dose Route Start Last Admin Trade Name Freq PRN Reason Stop Dose Admin Acetaminophen 650 mg 08/05/22 04:20 Acetaminophen 325 Mg Tablet PO Q4H PRN Mild Pain (1-3) or Fever Hydrocodone Bitart/Acetaminophen 1 tab 08/05/22 04:22 08/06/22 08:37 Hydrocodone/Acetaminophen (*Crx) 5-325 Mg Tablet PO 1 tab Q4H PRN Administration Moderate Pain (4-6) Al Hydrox/Mg Hydrox/Simethicone 30 ml 08/05/22 04:22 Mag Hydrox/Al Hydrox/Simeth 30 Ml Udc PO QID PRN Dyspepsia Albuterol 2.5 mg 08/05/22 03:07 Albuterol Sulfate Neb 2.5 Mg/3 Ml Inh INHALATION Q6HRT PRN Shortness Of Breath Benzonatate 200 mg 08/05/22 09:00 08/06/22 08:37 Benzonatate 100 Mg Capsule PO 200 mg TID RUBEN Administration Bisacodyl 5 mg 08/05/22 04:22 Bisacodyl 5 Mg Tablet Ec PO DAILY PRN Constipation Guaifenesin 1,200 mg 08/05/22 09:00 08/06/22 08:37 Guaifenesin 12 Hr 600 Mg Tabcr PO 1,200 mg Q12HR RUBEN Administration Hydromorphone HCl 1 mg 08/05/22 04:22 08/06/22 10:03 Hydromorphone Hcl Inj (*Crx) 1 Mg/Ml Syr IV PUSH 1 mg Q3H PRN Administration Pain Rated 7-10 Azithromycin 500 mg in 250 mls @ 250 mls/hr 08/05/22 09:00 08/06/22 08:39 Zithromax I
--- NOTE | 2022-08-06 12:56 | P.DS_ITS ---
DS: Discharge Diagnosis Discharge Diagnosis (1) Sepsis: Code(s): A41.9 - Sepsis, unspecified organism Status: Acute Assessment and Plan: Patient meets SIRS criteria with tachycardia, tachypnea, leukocytosis, and source of infection with possible bronchitis * Azithromycin continued for a total of 5 days * Could be residual from recent COVID infection * Blood cultures no growth to date * Sputum culture if able * Trend labs * Trend symptoms (2) Acute bronchitis with bronchospasm: Code(s): J20.9 - Acute bronchitis, unspecified Status: Acute Assessment and Plan: Patient was diagnosed with COVID a couple weeks ago and has residual cough post COVID * Wheezing noted on exam * No history of smoking * WBC is elevated at 15.5 * Solu-Medrol 40mg IV Q8H, wean as indicated * Start azithromycin with elevated WBC * Continue neb treatments * Anti-tussives ordered (3) COVID: Code(s): U07.1 - COVID-19 Status: Acute Assessment and Plan: Diagnosed COVID-19 on 07/23/2022, subsequently has negative COVID tests * COVID test on admission was negative. no need for isolation considering length of disease course * Reported persistent cough, Tessalon Perles and mucinex DM * blood cultures with diaphoresis despite no fevers, pending * will continue nebs and steroids for now (she has some wheezing on right lung, no history of asthma or smoking/vaping) * repeat labs does show any elevated WBC * CTA does not indicate any pneumonia or PE (4) PCOS (polycystic ovarian syndrome): Code(s): E28.2 - Polycystic ovarian syndrome Status: Acute Assessment and Plan: * S/P oophorectomy surgery * Stable at this time * Continue home metformin and spironolactone DS: Summary Time Spent with Patient Time attestation: Total time spent providing and/or coordinating discharge services: DS: Data Data Completed and Pending Labs on day of discharge: Labs from last 24 hours 08/06/22 08/06/22 06:10 06:10 WBC 19.3 H RBC 4.29 Hgb 13.1 Hct 38.7 MCV 90.2 MCH 30.5 MCHC 33.9 RDW 13.2 Plt Count 335 MPV 8.4 Immature Gran % (Auto) 0.7 H Neut % (Auto) 85.2 H Lymph % (Auto) 7.8 L [place] % (Auto) 6.1 Eos % (Auto) 0.0 Baso % (Auto) 0.2 Lymph # (Auto) 1.51 [place] # (Auto) 1.2 H Eos # (Auto) 0.0 Baso # (Auto) 0.0 Abs Immat Gran (auto) 0.14 H Absolute Neuts (auto) 16.5 H Absolute Nucleated RBC 0.0 Nucleated RBC % 0.0 Sodium 136 L Potassium 4.2 Chloride 104 Carbon Dioxide 23 Anion Gap 9 BUN 12 Creatinine 0.50 L Estim Creat Clear Calc 202 Estimated GFR > 60 Glucose 143 H Calcium 9.0 Total Bilirubin 0.3 AST 19 ALT 28 Alkaline Phosphatase 49 Total Protein 8.0 Albumin 4.3 Preliminary micro results at discharge 08/05/22 06:19 Blood Culture - Preliminary Blood 08/05/22 06:25 Blood Culture - Preliminary Blood Di
--- NOTE | 2022-08-06 12:56 | PM.DS ---
DS: Discharge Diagnosis Discharge Diagnosis (1) Sepsis: Code(s): A41.9 - Sepsis, unspecified organism Status: Acute Assessment and Plan: Patient meets SIRS criteria with tachycardia, tachypnea, leukocytosis, and source of infection with possible bronchitis Azithromycin continued for a total of 5 days Could be residual from recent COVID infection Blood cultures no growth to date Sputum culture if able Trend labs Trend symptoms (2) Acute bronchitis with bronchospasm: Code(s): J20.9 - Acute bronchitis, unspecified Status: Acute Assessment and Plan: Patient was diagnosed with COVID a couple weeks ago and has residual cough post COVID Wheezing noted on exam No history of smoking WBC is elevated at 15.5 Solu-Medrol 40mg IV Q8H, wean as indicated Start azithromycin with elevated WBC Continue neb treatments Anti-tussives ordered (3) COVID: Code(s): U07.1 - COVID-19 Status: Acute Assessment and Plan: Diagnosed COVID-19 on 07/23/2022, subsequently has negative COVID tests COVID test on admission was negative. no need for isolation considering length of disease course Reported persistent cough, Tessalon Perles and mucinex DM blood cultures with diaphoresis despite no fevers, pending will continue nebs and steroids for now (she has some wheezing on right lung, no history of asthma or smoking/vaping) repeat labs does show any elevated WBC CTA does not indicate any pneumonia or PE (4) PCOS (polycystic ovarian syndrome): Code(s): E28.2 - Polycystic ovarian syndrome Status: Acute Assessment and Plan: S/P oophorectomy surgery Stable at this time Continue home metformin and spironolactone DS: Summary Time Spent with Patient Time attestation: Total time spent providing and/or coordinating discharge services: DS: Data Data Completed and Pending Labs on day of discharge: Labs from last 24 hours 08/06/22 08/06/22 06:10 06:10 WBC 19.3 H RBC 4.29 Hgb 13.1 Hct 38.7 MCV 90.2 MCH 30.5 MCHC 33.9 RDW 13.2 Plt Count 335 MPV 8.4 Immature Gran % (Auto) 0.7 H Neut % (Auto) 85.2 H Lymph % (Auto) 7.8 L [place] % (Auto) 6.1 Eos % (Auto) 0.0 Baso % (Auto) 0.2 Lymph # (Auto) 1.51 [place] # (Auto) 1.2 H Eos # (Auto) 0.0 Baso # (Auto) 0.0 Abs Immat Gran (auto) 0.14 H Absolute Neuts (auto) 16.5 H Absolute Nucleated RBC 0.0 Nucleated RBC % 0.0 Sodium 136 L Potassium 4.2 Chloride 104 Carbon Dioxide 23 Anion Gap 9 BUN 12 Creatinine 0.50 L Estim Creat Clear Calc 202 Estimated GFR > 60 Glucose 143 H Calcium 9.0 Total Bilirubin 0.3 AST 19 ALT 28 Alkaline Phosphatase 49 Total Protein 8.0 Albumin 4.3 Preliminary micro results at discharge 08/05/22 06:19 Blood Culture - Preliminary Blood 08/05/22 06:25 Blood Culture - Preliminary Blood Discharge Plan Discharge Consulting providers: Jhoan Arrington Discharge Instructions: Surgery Recommendations: Recommend evaluation with Dr. Hanna at [facility]. He is a hernia and minimally invasive specialist. To get an office visit, please call [phone] Arrington's office at [phone] if you need to be seen earlier. He can try calling Dr. Hanna to arrange a more urgent office visit. Discharge Medications: No Action methylphenidate HCl 36 mg tablet extended release 24hr 72 mg PO DAILY metformin 500 mg Tablet 1,000 mg PO BID spironolactone 50 mg Tablet 100 mg PO DAILY Date of admission: 08/05/22 02:27 Primary Care Provider: PHYSICIAN NOT ON STAFF,NONSTAFF Admitting Provider: Ike Cooper Attending physician on admission: Ike Cooper Condition: Guarded Prognosis
[2022-08-06 14:00] VITALS: BP 144/81; PULSE 92; RESP 16; TEMP 35.5; O2SAT 98
[2022-08-06 16:00] LABS: Add Urine Microscopic? YES; Appearance Urine Slightly Cloudy (Clear); Bilirubin Urine Negative (Negative); Blood Urine Negative (Negative); Color Urine Yellow (Yellow); Glucose Urine UA 2+ mg/dL (Negative); Ketones Urine Negative (Negative); Leukocyte Esterase Ur Negative LEU/UL (Negative); Nitrate Urine Negative (Negative); Protein Urine Negative (Negative); Specific Grav Ur 1.025 (1.001-1.035); Urobilinogen Urine 0.2 mg/dL (<2.0); pH Urine 6.5 (5.0-9.0)
[2022-08-06 16:05] LABS: Mucus Urine Rare /lpf; Squamous Epithelial Cell Urine Occasional /hpf (Few); WBC Urine 0-3 /hpf
[2022-08-06 22:00] VITALS: BP 140/79; PULSE 101; RESP 20; TEMP 36.1; O2SAT 99
[2022-08-07] MEDS: HYDROcodone/acetaminophen (*CRX) 5-325 MG TABLET 1 TAB PO (03:30)
[2022-08-07] MEDS: HYDROmorphone HCL INJ (*CRX) 1 MG/ML SYR IV PUSH ×2 (05:07→09:07)
[2022-08-07 05:36] VITALS: BP 152/87; PULSE 74; RESP 16; TEMP 36.1; O2SAT 99
[2022-08-07 07:00] LABS: Basophils Absolute Auto 0.1 K/mm3 (0.0-0.1); Basophils Percent Auto 0.4 % (0.2-1.2); Eosinophils Absolute Auto 0.1 K/mm3 (0-0.3); Eosinophils Percent Auto 0.5 % (0-4.4); Hematocrit 38.4 % (37.0-47.0); Hemoglobin 12.7 g/dL (12.0-15.0); Immature Granulocyte Absolute 0.11 K/mm3 (0.00-0.031); Immature Granulocyte Percent A 0.9 % (0-0.5); Lymphocytes Percent Auto 36.1 % (18.3-44.2); Mean Corpuscular HGB Conc 33.1 g/dl (32-36); Mean Corpuscular Volume 90.6 fl (80-100); Mean Platelet Volume 8.1 fl (7.4-10.4); Monocytes Percent Auto 8.3 % (2.6-8.5); Neutrophils Absolute Auto 6.7 K/mm3 (1.3-6.7); Neutrophils Percent Auto 53.8 % (45.5-73.1); Platelet Count Result 251 k/mm3 (150-375); Red Blood Count 4.24 M/mm3 (4.2-5.4); Red Cell Distribution Width 13.2 % (11.5-14.5); White Blood Count 12.5 K/mm3 (4.5-10.0)
[2022-08-07 07:12] LABS: Chloride 103 mmol/L (98-107)
[2022-08-07 07:16] LABS: Alanine Aminotransferase 24 U/L (6-35); Albumin Level 3.9 g/dL (3.5-5.1); Alkaline Phosphatase 41 U/L (38-126); Anion Gap 5 mmol/L (8-16); Aspartate Amino Transferase 19 U/L (14-36); Bilirubin,Total 0.2 mg/dL (0.2-1.3); Blood Urea Nitrogen 16 mg/dL (7-17); Calcium 8.3 mg/dL (8.4-10.2); Carbon Dioxide 28 mmol/L (22-30); Estimated CRCL calculation 149 ml/min; Estimated Glomerular Filt Rate > 60; Glucose 95 mg/dL (65-110); Sodium 136 mmol/L (137-145)
[2022-08-07] MEDS: guaiFENesin 12 HR 600 MG TABCR 1200 MG PO (08:58)
[2022-08-07] MEDS: BENZONATATE 100 MG CAPSULE 200 MG PO ×2 (08:58→12:04)
[2022-08-07] MEDS: metFORMIN HCL 500 MG TABLET 1000 MG PO (08:59)
[2022-08-07] MEDS: SPIRONOLACTONE 50 MG TABLET 100 MG PO (08:59)
--- NOTE | 2022-08-07 12:46 | P.DS_ITS ---
DS: Admitting Diagnosis Discharge Date 08/07/22 Admitting Diagnosis COVID-19, abdominal hernia DS: Discharge Diagnosis Discharge Diagnosis (1) Sepsis: Code(s): A41.9 - Sepsis, unspecified organism Status: Acute Assessment and Plan: Patient meets SIRS criteria with tachycardia, tachypnea, leukocytosis, and source of infection with possible bronchitis * IV azithromycin ordered on 08/05/22 * Could be residual from recent COVID infection * WBC 15.5 on admission * Blood cultures no growth to date * Sputum culture uncollected * 08/06/22 WBC count 19.3. Patient does not complain of any symptoms. UA ordered to rule out infection. * 08/06/22 azithromycin discontinued due to no signs of infection on chest x-ray or chest CT. Patient having no infectious symptoms. * 08/07/22 patient's white count decreased to 12 and patient is feeling good since is ready to go home. * Trend labs * Trend symptoms (2) Acute bronchitis with bronchospasm: Code(s): J20.9 - Acute bronchitis, unspecified Status: Acute Assessment and Plan: Patient was diagnosed with COVID a couple weeks ago and has residual cough post COVID * Wheezing noted on exam * No history of smoking * WBC is elevated at 15.5 on admission * Solu-Medrol 40mg IV Q8H, wean as indicated * Solu-Medrol discontinued on 08/06/2022 * Azithromycin started on 08/05/2022 and discontinued on 08/06/2022 due to no signs infection. * DuoNeb treatments discontinued due to patient's tachycardia that she experiences when undergoing nebulizing treatments * Anti-tussives ordered * Patient cough improving * Continue antitussives as an outpatient (3) COVID: Code(s): U07.1 - COVID-19 Status: Acute Assessment and Plan: Diagnosed COVID-19 on 07/23/2022, subsequently has negative COVID tests * COVID test on admission was negative. no need for isolation considering length of disease course * Reported persistent cough, Tessalon Perles and mucinex DM * blood cultures no growth to date * will continue nebs and steroids for now (she has some wheezing on right lung, no history of asthma or smoking/vaping) * 08/06/22 steroids and nebulizers discontinued due to clear lungs and clear chest x-ray. * repeat labs does show any elevated WBC at 19.3 * CTA does not indicate any pneumonia or PE (4) Abdominal hernia: Code(s): K46.9 - Unspecified abdominal hernia without obstruction or gangrene Status: Acute Assessment and Plan: * Noted failure, secondary to acute cough * General surgery consulted * Outpatient vs inpatient * Imaging does not indicate any obstruction or incarceration, however, does appear to be very large * General surgery following patient recommend patient be seen by tertiary facility that can handle a more complicated case. * Dr. Arrington recommends pt follow up with Dr. Hanna for hernia repair (5) PCOS (polycystic ovarian syndrome): Code(s): E28.2 - Polycystic ovarian syndrome Status: Acute Assessment and Plan: * S/P oophorectomy surgery * Stable at this time * Continue home metformin and spironolactone DS: Summary Hospital Course Reason for hospitalization: COVID-19, abdominal hernia Hospital Course: Patient presented to ER on 08-25 due to the failure of her abdominal hernia the mesh repair. Patient states that she was diagnosed with COVID-19 several days prior and has had residual cough. Patient's chest x-ray as
--- NOTE | 2022-08-07 12:46 | PM.DS ---
DS: Admitting Diagnosis Discharge Date 08/07/22 Admitting Diagnosis COVID-19, abdominal hernia DS: Discharge Diagnosis Discharge Diagnosis (1) Sepsis: Code(s): A41.9 - Sepsis, unspecified organism Status: Acute Assessment and Plan: Patient meets SIRS criteria with tachycardia, tachypnea, leukocytosis, and source of infection with possible bronchitis IV azithromycin ordered on 08/05/22 Could be residual from recent COVID infection WBC 15.5 on admission Blood cultures no growth to date Sputum culture uncollected 08/06/22 WBC count 19.3. Patient does not complain of any symptoms. UA ordered to rule out infection. 08/06/22 azithromycin discontinued due to no signs of infection on chest x-ray or chest CT. Patient having no infectious symptoms. 08/07/22 patient's white count decreased to 12 and patient is feeling good since is ready to go home. Trend labs Trend symptoms (2) Acute bronchitis with bronchospasm: Code(s): J20.9 - Acute bronchitis, unspecified Status: Acute Assessment and Plan: Patient was diagnosed with COVID a couple weeks ago and has residual cough post COVID Wheezing noted on exam No history of smoking WBC is elevated at 15.5 on admission Solu-Medrol 40mg IV Q8H, wean as indicated Solu-Medrol discontinued on 08/06/2022 Azithromycin started on 08/05/2022 and discontinued on 08/06/2022 due to no signs infection. DuoNeb treatments discontinued due to patient's tachycardia that she experiences when undergoing nebulizing treatments Anti-tussives ordered Patient cough improving Continue antitussives as an outpatient (3) COVID: Code(s): U07.1 - COVID-19 Status: Acute Assessment and Plan: Diagnosed COVID-19 on 07/23/2022, subsequently has negative COVID tests COVID test on admission was negative. no need for isolation considering length of disease course Reported persistent cough, Tessalon Perles and mucinex DM blood cultures no growth to date will continue nebs and steroids for now (she has some wheezing on right lung, no history of asthma or smoking/vaping) 08/06/22 steroids and nebulizers discontinued due to clear lungs and clear chest x-ray. repeat labs does show any elevated WBC at 19.3 CTA does not indicate any pneumonia or PE (4) Abdominal hernia: Code(s): K46.9 - Unspecified abdominal hernia without obstruction or gangrene Status: Acute Assessment and Plan: Noted failure, secondary to acute cough General surgery consulted Outpatient vs inpatient Imaging does not indicate any obstruction or incarceration, however, does appear to be very large General surgery following patient recommend patient be seen by tertiary facility that can handle a more complicated case. Dr. Arrington recommends pt follow up with Dr. Hanna for hernia repair (5) PCOS (polycystic ovarian syndrome): Code(s): E28.2 - Polycystic ovarian syndrome Status: Acute Assessment and Plan: S/P oophorectomy surgery Stable at this time Continue home metformin and spironolactone DS: Summary Hospital Course Reason for hospitalization: COVID-19, abdominal hernia Hospital Course: Patient presented to ER on 08-25 due to the failure of her abdominal hernia the mesh repair. Patient states that she was diagnosed with COVID-19 several days prior and has had residual cough. Patient's chest x-ray as well as CTA of chest abdomen pelvis did not reveal any signs of infection or clotting in the lungs. Patient was seen by General surgery. Patient's hernia was reducible and did not reveal incarceration or strangulation on imaging. It was advised that patient be referred to tertiary facility for hernia repair due to how advanced the hernia is. Patient tolerating diet well and her pain reduced during her stay. Patient was put on azithromycin due to meeting SIRS criteria on admission. Patient will continue a
== END 2022-08-07 14:05 | disposition home or self-care (01) ==
LOC: ANHED 21:48 → ANH3MEDSUR 08-05 03:01
PROVIDERS: Emergency Medicine; Internal Medicine Critical Care Medicine; Admitting Provider Student in an Organized Health Care Education/Training Program; Emergency Provider Emergency Medicine; Visit Provider Internal Medicine
DX: A41.9 Sepsis, unspecified organism (principal); J20.9 Acute bronchitis, unspecified; K43.2 Incisional hernia without obstruction or gangrene; R65.10 Systemic inflammatory response syndrome (SIRS) of non-infectious origin without acute organ dysfunction; L73.2 Hidradenitis suppurativa; L40.9 Psoriasis, unspecified; R94.31 Abnormal electrocardiogram [ECG] [EKG]; Z20.822 Contact with and (suspected) exposure to COVID-19; E66.01 Morbid (severe) obesity due to excess calories; Z68.41 Body mass index [BMI] 40.0-44.9, adult; Z90.721 Acquired absence of ovaries, unilateral; Z86.16 Personal history of COVID-19; Z79.84 Long term (current) use of oral hypoglycemic drugs; Z79.899 Other long term (current) drug therapy
CPT/HCPCS: 36415; 71045; 71275; 74177; 80053; 81001; 81025; 85025; 85380; 85610; 85730; 87040; 87636; 93005; 94640; 96365; 96374; 96375; 96376; 99285; A9270; G0378; J0131; J0456; J1170; J2920; J2930; Q9967